=== PATIENT | female | born 1970 | race Caucasian/White ===

== ENCOUNTER 2022-04-04 22:14 | Emergency (ER) | payer MEDICARE, OTHER, SELFPAY ==
[2022-04-04 22:28] VITALS: BP 135/87; RESP 16; TEMP 36.1; O2SAT 98; BMI 19.8
[2022-04-04 23:52] VITALS: O2SAT 98
--- NOTE | 2022-04-04 23:57 | ED_ITS ---
HPI - General Adult General Chief complaint: Dizziness/Vertigo Stated complaint: Nausea, very shaking, dizzy Time Seen by Provider: 04/04/22 23:28 History of Present Illness HPI narrative: 51-year-old woman with a history of bipolar disorder and long-term lithium use which has been very helpful historically, presents with shakiness/jitteriness, lightheadedness headache nausea which she would associate with potentially toxic lithium levels. She has been hospitalized a couple of times with markedly elevated levels of lithium. She notes later though that there has never been evidence of organ toxicity in the labs. Apparently can be quite sensitive to medication. Has been making some adjustments to dosing lately with approval of her psychiatrist. Has been on higher doses in the past but recently has decreased from 900 mg to 600 mg daily. Admittedly has been skipping some days of taking lithium over this last week, sounds like related to concerns of her levels potentially being too high. No seizure disorder described. No fever cough and cold symptoms. No abdominal pain. No shortness of breath. Is visiting from [place]. These feelings though escalated a good deal yesterday evening prompting visit today. History of migraines Related Data Home Medications Medication Instructions Recorded Confirmed alprazolam 0.25 mg tablet 0.25 mg PO BID PRN 04/05/22 04/05/22 bupropion HCl 150 mg 24 hr tablet, 150 mg PO DAILY 04/05/22 04/05/22 extended release cyclobenzaprine 10 mg tablet 10 mg PO BID PRN 04/05/22 04/05/22 doxepin 10 mg capsule 20 mg PO HS 04/05/22 04/05/22 erenumab-aooe 140 mg/mL 140 mg subcut .monthly 04/05/22 04/05/22 subcutaneous auto-injector (Aimovig Autoinjector) fluoxetine 10 mg tablet 10 mg PO DAILY 04/05/22 04/05/22 fluoxetine 40 mg capsule 40 mg PO DAILY 04/05/22 04/05/22 lamotrigine 100 mg tablet 100 mg PO DAILY 04/05/22 04/05/22 levothyroxine 100 mcg tablet 100 mcg PO DAILY 04/05/22 04/05/22 lithium carbonate 300 mg 300 mg PO DAILY 04/05/22 04/05/22 tablet,extended release Previous Rx's Medication Instructions Recorded diazepam 5 mg tablet (Valium) 2.5 - 5 mg PO BID PRN #6 tabs 04/05/22 Allergies Allergy/AdvReac Type Severity Reaction Status Date / Time lorazepam [From Ativan] Allergy Intermediate Increased Verified 04/05/22 02:44 Anxiety ketamine Allergy Mild Short of Verified 04/05/22 02:44 Breath, Feeling of Throat Closing Review of Systems Status of ROS: Reports: 10 or more systems reviewed and unremarkable except as noted in History and below PFSH PFS Medical History Anxiety Bipolar affective disorder Depression Migraine PTSD (post-traumatic stress disorder) Surgical History No significant past surgical history Social History Smoking Status: Never smoker Do you use any of these nicotine containing products: None Second hand tobacco smoke exposure: No How often do you have a drink containing alcohol: never How often do you have six or more drinks on one occasion: Never AUDIT-C Alcohol total score: 0 Non-prescribed substance use: denies use Exam Narrative: Exam Narrative: Very pleasant. Carefully casually groomed. Is slightly tremulous. Cranial nerves 2-12 intact. There is no nystagmus. Skin is warm and dry. No rashes apparent. Oropharynx is moist Neck is supple. Moving all extremities without difficulty. Cardiovascular is regular rate and rhythm Lungs are clear. Abdomen is soft and nontender no HSM appreciated. Const: Vital Signs, click to edit/add: Vital Signs - 24 hr 04/04/22 22:28 04/04/22 23:52 04/05/22 00:00 Temperature 97.0 F L 97.0 F L Pulse Rate [Right Pulse Oximeter] Respiratory Rate 16 Blood Pressure [Le ft Upper Arm] 135/87 Pulse Oximetry 98 98 Oxygen Delivery Me thod Room Air 04/05/22 01:44 04/05/22 02:43 04/05/22 00:05 Temperature 97.0 F L 98.3 F 98.0 F Pulse Rate [Right Pulse Oximeter] 89 79 Respiratory Rate 16 16 Blood Pressure [Le ft Upper Arm] 125/78 142/74 H Pulse Oximetry 98 98 Oxygen Delivery Me thod Room Air Room Air 04/05/22 02:46 Temperature 98.3 F Pulse Rate [Right Pulse Oximeter] 89 Respiratory Rate 16 Blood Pressure [Le ft Upper Arm] 125/78 Pulse Oximetry Oxygen Delivery Me thod Documenting provider has reviewed patient's vital signs: yes Course Course Hospital Course: Labs are collected given IV fluids and ketorolac for headache along with Zofran. Reevaluation(s) Reevaluation #1: Still with some headache and nausea. Discussed various options. I do perceive potentially some symptom exacerbation with anxiety. After discussion of options settled on trial of ketamine. She has been considering ketamine for mental health treatment. Reevaluation #2: Ketamine was discontinued as did not like how it was making her feel. Was worried she was having a reaction. Was given diphenhydramine. I discussed unlikely allergic reaction to ketamine. Finished treating headache with 4 mg of morphine. Vital Signs Vital signs: Initial Vital Signs Temperature 97.0 F L 04/04/22 22:28 Temperature Source Temporal Artery Scan 04/04/22 22:28 Respiratory Rate 16 04/04/22 22:28 Blood Pressure 135/87 04/04/22 22:28 Blood Pressure Mean 103 04/04/22 22:28 Blood Pressure Position Sitting 04/04/22 22:28 Pulse Oximetry 98 04/04/22 22:28 Oxygen Delivery Method 04/04/22 22:28 Vital Signs Temperature 97.0 F L 04/04/22 22:28 Respiratory Rate 16 04/04/22 22:28 Blood Pressure 135/87 04/04/22 22:28 Pulse Oximetry 98 04/04/22 22:28 Oxygen Delivery Method 04/04/22 22:28 Temperature 98.3 F 04/05/22 02:46 Pulse Rate 89 04/05/22 02:46 Respiratory Rate 16 04/05/22 02:46 Blood Pressure 125/78 04/05/22 02:46 Pulse Oximetry 98 04/05/22 02:43 Oxygen Delivery Method 04/05/22 02:43 Medical Decision Making MDM Narrative Medical decision making narrative: Normal labs suggesting no measurable toxicity. Wouldn't normally follow levels of lithium in mental health treatment. Not able to get lithium levels back immediately regardless. Given concerns though will send out for quicker turnaround. This can be followed up tomorrow and she can relay to her psychiatrist to see what more treatment they might want. She is wondering what she can do when feeling like this. At this point treating symptoms more than measurable toxicity. Apparently has had poor reaction to lorazepam. Will make some Valium available at her pharmacy. Lab Data Labs: Lab Results 04/05/22 04/05/22 04/05/22 Range/Units 00:10 00:10 00:10 WBC 7.21 (4.50-11.00) K/uL RBC 3.55 L (4.00-5.20) m/uL Hgb 11.7 L (12.0-16.0) gm/dL Hct 35.7 (33.0-51.0) % MCV 101 H (80-100) fL MCH 33 (26-34) pg MCHC 33 (32-36) gm/dL RDW Coeff of Dorian 11.7 (11.5-15.5) % Plt Count 355 (140-440) K/uL Neut % (Auto) 61.7 (42.0-72.0) % Lymph % (Auto) 25.1 (20-44) % [place] % (Auto) 11.4 H (0.0-11.0) % Eos % (Auto) 1.5 (0.0-7.0) % Baso % (Auto) 0.3 (0.0-3.0) % Neut # (Auto) 4.45 (1.7-7.0) K/uL Lymph # (Auto) 1.81 (0.90-2.90) K/uL [place] # (Auto) 0.80 (0.00-0.90) K/UL Eos # (Auto) 0.11 (0.00-0.50) K/uL Baso # (Auto) 0.02 (0.00-0.30) K/uL Abs Immat Gran (auto) 0.00 (0.00-0.30) K/uL Sodium 141 (135-149) mmol/L Potassium 4.1 (3.6-5.1) mmol/L Chloride 103 (96-114) mmol/L Carbon Dioxide 28 (20-32) mmol/L BUN 11 (7-30) mg/dL Creatinine 0.7 (0.5-1.5) mg/dL Estimated Creat Clear 89.50 Estimated GFR 105 ml/min Glucose 96 (60-115) mg/dL Calcium 10.0 (8.4-10.6) mg/dL Magnesium 2.1 (1.5-2.6) mg/dL Total Bilirubin 0.4 (0.1-1.5) mg/dL Direct Bilirubin 0.1 (0.0-0.5) mg/dL AST 32 (12-35) U/L ALT 23 (4-35) U/L Alkaline Phosphatase 107 (40-150) U/L C-Reactive Protein < 0.5 L (0.5-1.0) mg/dL NT-Pro-B Natriuret Pep 136 H (0-125) PG/mL Total Protein 7.8 (6.0-8.3) g/dL Albumin 4.8 (3.3-5.0) g/dL [place] 04/05/22 Range/Units 00:10 WBC (4.50-11.00) K/uL RBC (4.00-5.20) m/uL Hgb (12.0-16.0) gm/dL Hct (33.0-51.0) % MCV (80-100) fL MCH (26-34) pg MCHC (32-36) gm/dL RDW Coeff of Dorian (11.5-15.5) % Plt Count (140-440) K/uL Neut % (Auto) (42.0-72.0) % Lymph % (Auto) (20-44) % [place] % (Auto) (0.0-11.0) % Eos % (Auto) (0.0-7.0) % Baso % (Auto) (0.0-3.0) % Neut # (Auto) (1.7-7.0) K/uL Lymph # (Auto) (0.90-2.90) K/uL [place] # (Auto) (0.00-0.90) K/UL Eos # (Auto) (0.00-0.50) K/uL Baso # (Auto) (0.00-0.30) K/uL Abs Immat Gran (auto) (0.00-0.30) K/uL Sodium (135-149) mmol/L Potassium (3.6-5.1) mmol/L Chloride (96-114) mmol/L Carbon Dioxide (20-32) mmol/L BUN (7-30) mg/dL Creatinine (0.5-1.5) mg/dL Estimated Creat Clear Estimated GFR ml/min Glucose (60-115) mg/dL Calcium (8.4-10.6) mg/dL Magnesium (1.5-2.6) mg/dL Total Bilirubin (0.1-1.5) mg/dL Direct Bilirubin (0.0-0.5) mg/dL AST (12-35) U/L ALT (4-35) U/L Alkaline Phosphatase (40-150) U/L C-Reactive Protein (0.5-1.0) mg/dL NT-Pro-B Natriuret Pep (0-125) PG/mL Total Protein (6.0-8.3) g/dL Albumin (3.3-5.0) g/dL [place] Cancelled Discharge Plan Discharge Clinical Impression: Medication intolerance, Malaise, Headache, Adverse drug reaction Patient Disposition: Home w/ Parent or Adult Condition: Improved Additional Instructions: Make sure you are signed up for [employer] here. 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 Tomorrow you can review that and report this level to your healthcare provider/psychiatrist for further recommendations, probably also based partly on your symptoms. Focus on hydration. Return as needed. Mary from [facility]. Valium is at pharmacy if needed. Prescriptions: New diazepam [Valium] 5 mg tablet 2.5 - 5 mg PO BID PRNQty: 6 0RF No Action alprazolam 0.25 mg tablet 0.25 mg PO BID PRN bupropion HCl 150 mg tablet extended release 24 hr 150 mg PO DAILY cyclobenzaprine 10 mg tablet 10 mg PO BID PRN doxepin 10 mg capsule 20 mg PO HS Label Comments: take 2 capsules by mouth at bedtime Aimovig Autoinjector 140 mg/mL auto-injector 140 mg SUBCUT .monthly Label Comments: inject 1 milliliter ( 140 milligrams ) subcutaneously Every Month... (REFER TO PRESCRIPTION NOTES). lamotrigine 100 mg tablet 100 mg PO DAILY levothyroxine 100 mcg tablet 100 mcg PO DAILY lithium carbonate 300 mg tablet extended release 300 mg PO DAILY fluoxetine 40 mg capsule 40 mg PO DAILY fluoxetine 10 mg tablet 10 mg PO DAILY Follow Up/Referrals: Provider,Not a Local [Primary Care Provider] - Stand Alone Forms: [email or web address] Info Instructions
[2022-04-05] VITALS: TEMP 36.1
[2022-04-05] MEDS: KETOROLAC 15 MG/ML inj IVP
[2022-04-05] MEDS: ONDANSETRON 2 MG/ML inj 4 MG IVP (00:01)
[2022-04-05 00:05] VITALS: BP 142/74; PULSE 79; RESP 16; TEMP 36.7; O2SAT 98
[2022-04-05 00:14] LABS: Basophils Absolute Auto 0.02 K/uL (0.00-0.30); Basophils Percent Auto 0.3 % (0.0-3.0); Eosinophils Absolute Auto 0.11 K/uL (0.00-0.50); Eosinophils Percent Auto 1.5 % (0.0-7.0); Hematocrit 35.7 % (33.0-51.0); Hemoglobin* 11.7 gm/dL (12.0-16.0); Lymphocytes Absolute Auto 1.81 K/uL (0.90-2.90); Lymphocytes Percent Auto 25.1 % (20-44); Mean Corpuscular HGB Conc 33 gm/dL (32-36); Mean Corpuscular Hemoglobin 33 pg (26-34); Mean Corpuscular Volume 101 fL (80-100); Monocytes Percent Auto 11.4 % (0.0-11.0); Neutrophils Absolute Auto 4.45 K/uL (1.7-7.0); Neutrophils Percent Auto 61.7 % (42.0-72.0); Platelet Count* 355 K/uL (140-440); RDW Coefficient of Variation % 11.7 % (11.5-15.5); Red Blood Count 3.55 m/uL (4.00-5.20); White Blood Count* 7.21 K/uL (4.50-11.00)
[2022-04-05 00:17] LABS: Slide Review Reflex No
[2022-04-05 00:33] LABS: Albumin* 4.8 g/dL (3.3-5.0); Chloride* 103 mmol/L (96-114)
[2022-04-05 00:34] LABS: Potassium* 4.1 mmol/L (3.6-5.1); Sodium* 141 mmol/L (135-149)
[2022-04-05 00:36] LABS: Bilirubin Direct* 0.1 mg/dL (0.0-0.5); Bilirubin Total* 0.4 mg/dL (0.1-1.5); Carbon Dioxide* 28 mmol/L (20-32); Creatinine* 0.7 mg/dL (0.5-1.5); Estimated Glomerular Filt Rate 105 ml/min; Magnesium* 2.1 mg/dL (1.5-2.6); Total Protein* 7.8 g/dL (6.0-8.3)
[2022-04-05 00:37] LABS: Alanine Aminotransferase* 23 U/L (4-35); Alkaline Phosphatase* 107 U/L (40-150); Aspartate Amino Transferase* 32 U/L (12-35); Blood Urea Nitrogen* 11 mg/dL (7-30); Glucose* 96 mg/dL (60-115)
[2022-04-05 00:40] LABS: C Reactive Protein* < 0.5 mg/dL (0.5-1.0)
[2022-04-05 00:46] LABS: NT Pro B Type NatriureticPept* 136 PG/mL (0-125)
[2022-04-05] MEDS: 0.9 % SODIUM CHLORIDE 1000 ml 1,000 ML IV ×2 (01:15)
[2022-04-05] MEDS: KETAMINE HCL 20 MG in 0.9 % SODIUM CHLORIDE 100 ml 100 ML 300.6 MG IVPB (01:15)
[2022-04-05 01:44] VITALS: TEMP 36.1
[2022-04-05 02:43] VITALS: BP 125/78; PULSE 89; RESP 16; TEMP 36.8; O2SAT 98
[2022-04-05 02:46] VITALS: BP 125/78; PULSE 89; RESP 16; TEMP 36.8
== END 2022-04-05 02:48 | disposition home or self-care (01) ==
PROVIDERS: Emergency Provider Family Medicine
DX: R51.9 Headache, unspecified (principal); T88.7XXA Unspecified adverse effect of drug or medicament, initial encounter
CPT/HCPCS: 36415; 80048; 80076; 80178; 83735; 83880; 85025; 86140; 93005; 94761; 96365; 96375; 99284; 99285; J1885; J2405; J3490; J7030